=== PATIENT | male | born 1955 | race Caucasian/White ===

== ENCOUNTER 2019-08-14 09:08 | Inpatient (IN) | payer MEDICAID ==
[~2019-08-14] VITALS: Ht 177.8 cm; Wt 76.7 kg
--- NOTE | 2019-08-14 09:12 | NUR ---
BIBA TAKEN TO BED 2
[2019-08-14 09:16] VITALS: BP 118/78
--- NOTE | 2019-08-14 09:24 | NUR ---
QATARI SPEAKING PT PAOA FROM HOME C/O ABD PAIN 2 HOURS RECREATIONAL PROGRAMS DIRECTOR, DENIES NVD. UNKNOWN HISTORY
[2019-08-14 10:22] LABS: BASOPHILS % (AUTO) 1.5 % (0.0-2.0); EOSINOPHILS % (AUTO) 1.3 % (0.0-4.0); HEMATOCRIT 28.2 % (36-52); HEMOGLOBIN 9.2 g/dL (12.0-18.0); LYMPHOCYTES # (AUTO) 0.5 K/uL (2.0-11.5); LYMPHOCYTES % (AUTO) 15.9 % (20.5-51.1); MEAN CORPUSCULAR HEMOGLOBIN 28 pg (27-31); MEAN CORPUSCULAR HGB CONC 33 g/dL (33-37); MEAN CORPUSCULAR VOLUME 85.6 fL (80-94); MONOCYTES # (AUTO) 0.2 K/uL (0.8-1.0); MONOCYTES % (AUTO) 8.1 % (1.7-9.3); NEUTROPHILS # (AUTO) 2.1 K/uL (1.8-7.7); NEUTROPHILS % (AUTO) 73.2 % (42.2-75.2); PLATELET COUNT (AUTO) 90 K/uL (140-450); RED BLOOD CELL COUNT(AUTO) 3.29 MIL/uL (4.20-6.10); RED CELL DISTRIBUTION WIDTH 24.1 % (11.6-13.7); WHITE BLOOD COUNT (AUTO) 2.9 K/uL (4.8-10.8)
[2019-08-14 10:27] LABS: PROTHROMBIN TIME 13.3 secs (10.8-13.4)
[2019-08-14 10:31] LABS: ALBUMIN 1.8 g/dL (3.4-5.0); ANION GAP 12.8 (8-16); CARBON DIOXIDE 23.5 mmol/L (21-32); CREATININE 1.8 mg/dL (0.6-1.3); POTASSIUM 4.3 mmol/L (3.5-5.1); TOTAL BILIRUBIN 0.9 mg/dL (0.0-1.0)
--- NOTE | 2019-08-14 11:30 | NUR ---
REINFORCED THE DRESSING ON PATIENT'S R ABDOMEN DUE TO MINIMAL LEAKAGE OF FLUID. DENIES PAIN. NO SOB.
[2019-08-14] MEDS ORDERED: ALBUMIN HUMAN 25% 100 ML IV ONE ×2 (12:15)
[2019-08-14] MEDS ORDERED: HYDROcodone/APAP 5/325 MG 1 TAB TAB PO ONE (12:20)
[2019-08-14] MEDS ORDERED: ONDANSETRON 4 MG/2 ML VIAL IM/IVP PRN (12:30)
[2019-08-14] MEDS ORDERED: MORPHINE SULFATE 2 MG/ML SYR IVP PRN (12:30)
[2019-08-14] MEDS ORDERED: LORazepam 2 MG/ML VIAL IM/IVP PRN (12:30)
[2019-08-14] MEDS ORDERED: DOCUSATE SODIUM 100 MG GELCAP PO PRN (12:30)
--- NOTE | 2019-08-14 12:33 | NUR ---
Patient will be admitted to care of Dr Galvan. Admited to tele room 116. Belongings list completed. Report to ROSMERY Weller. Endorsed 100ml of 25% albumin to be given IV.
[2019-08-14 12:52] LABS: APPEARANCE,URINE CLEAR (CLEAR); BILIRUBIN,URINE NEGATIVE (NEGATIVE); BLOOD, URINE NEGATIVE (NEGATIVE); COLOR,URINE YELLOW (YELLOW); LEUKOCYTE ESTERASE ,URINE TRACE (NEGATIVE); NITRITE, URINE NEGATIVE (NEGATIVE); PH,URINE 5.5 (5.0-9.0); UGLUCOSE NEGATIVE (NEGATIVE)
[2019-08-14 13:00] LABS: BARBITURATE, URINE NEG. ng/ml (NEG <=200); BENZODIAZEPINE, URINE NEG. ng/mL (NEG <=200); CANNABINOID, URINE NEG. ng/mL (NEG <=50); COCAINE, URINE NEG. ng/mL (NEG <=300); OPIATE, URINE NEG. ng/mL (NEG <=2000); PHENCYCLIDINE SCREEN,URINE NEG. ng/mL (NEG <=25); RBC,URINE NONE SEEN /HPF (0-5); WBC,URINE 0-5 /HPF (0-5)
[2019-08-14 13:30] VITALS: BP 126/73
--- NOTE | 2019-08-14 13:30 | NUR ---
RECEIVED PT FROM ER NURSE, PT BROUGHT IN ON CAMRYN, PT SWEDISH SPEAKERS, PT STABLE, PT TRANSFERRED ON TO BED, PT HAS LAC 20G INFUSING ALBUMIN AT 50 ML/H, PT DX CIRRHOSIS AND ABD PAIN, PT STABLE, PT INTRODUCE TO THE ROOM, UPDATED WHITEBOARD, PT SAFETY MEASURES IN PLACE, DR ENRIQUEZ IN ROOM WITH PT, ALL NEEDS MET NOW, CALL LIGHT WITHIN REACH.
[2019-08-14 13:33] LABS: PROTHROMBIN TIME 13.5 secs (10.8-13.4)
[2019-08-14 13:44] LABS: LIPASE 292 U/L (73-393); PHOSPHORUS 2.9 mg/dL (2.5-4.9); THYROID STIMULATING HORMONE 5.23 uIU/mL (0.34-3.74)
[2019-08-14 13:50] LABS: IRON, SERUM 28 ug/dl (50-175); TOTAL IRON BINDING CAPACITY 267 ug/dl (250-450)
--- NOTE | 2019-08-14 15:00 | NUR ---
PT RESTING IN BED, PT IS STABLE, CALL LIGHT WITHIN REACH.
[2019-08-14 16:00] VITALS: BP 133/75
[2019-08-14] MEDS: NACL 0.9% 1,000 ML IV SCH (17:15)
--- NOTE | 2019-08-14 17:53 | NUR ---
FAX REQUEST TO AUTHORIZATION FOR USE OR DISCLOSURE OF HEALTH INFORMATION TO [facility] AT [phone], 3 PAGES SEND.
--- NOTE | 2019-08-14 19:15 | NUR ---
GAVE REPORT TO NIGHT NURSE FOR CONTINUITY OF CARE, PT IS STABLE.
--- NOTE | 2019-08-14 19:16 | NUR ---
RECEIVED ENDORSEMENT AT BED SIDE FROM AM SHIFT RN. PATIENT IS IN BED. ABLE TO MAKE NEEDS KNOWN. RESPIRATION EVEN AND UNLABORED. DENIES ANY PAIN. IV SITE TO LAC 20 G INFUSING NS 1L AT 10CC/HR. PER ENDORSEMENT PARACENTESIS WAS DONE THIS AM THEY TOOK OUT 5.5 LITERS. PATIENT IS NPO AFTER MIDNIGHT FOR LIVER UTRASOUND TOMORROW. LOW BED IN PLACE. PLAN OF CARE WAS DISCUSSED. WILL CONTINUE TO MONITOR.
[2019-08-14 20:00] VITALS: BP 109/61
--- NOTE | 2019-08-14 21:30 | NUR ---
DUE MEDS GIVEN ORDERED. MED ED PROVIDED. NO A/R NOTED. TOLERATED WELL. BUSINESS SYSTEMS TECHNICIAN CHANGED THE PATIENT.
[2019-08-14] MEDS: PIPERACILLIN/TAZOBACTAM 3.375 GM in DEXTROSE 5% 50 ML IV SCH (22:05)
[2019-08-15] VITALS: BP 100/54
--- NOTE | 2019-08-15 02:10 | NUR ---
INFORMED DR. ELLER ABOUT PARACENTESIS SITE DRESSING THAT HAS A LEAK. SAID TO JUST REINFORCE THE DRESSING. NOTED AND CARRIED OUT. PATIENT DENIES PAIN. NO SOB NOTED.
[2019-08-15] MEDS: HYDROcodone/APAP 5/325 MG 1 TAB TAB PO PRN ×2 (03:59→23:00)
[2019-08-15 04:00] VITALS: BP 113/51
[2019-08-15] MEDS: PIPERACILLIN/TAZOBACTAM 3.375 GM in DEXTROSE 5% 50 ML IV SCH ×3 (05:13→20:11)
--- NOTE | 2019-08-15 05:15 | NUR ---
PATIENT IS RESTING. NO SOB NOTED. ADMINISTERED ZOSYN IVPB ORDERED. NO A/R NOTED. MED ED PROVIDED.
[2019-08-15 06:16] LABS: HEPATITIS A ANTIBODY IGM Negative (Negative); HEPATITIS B CORE AB TOTAL Negative (Negative); HEPATITIS B SURFACE ANTIBODY Non Reactive (.); HEPATITIS B SURFACE ANTIGEN Negative (Negative)
[2019-08-15 07:18] LABS: HEMOGLOBIN 8.5 g/dL (12.0-18.0); MEAN CORPUSCULAR HEMOGLOBIN 28 pg (27-31); WHITE BLOOD COUNT (AUTO) 3.8 K/uL (4.8-10.8)
--- NOTE | 2019-08-15 07:20 | NUR ---
ENDORSED PATIENT TO AM SHIFT RN FOR CONTINUITY OF CARE. PATIENT IS CLEAN, DRY AND COMFORTABLE. NOT IN ANY ACUTE DISTRESS. DENIES PAIN.
[2019-08-15 07:29] LABS: ANION GAP 11.3 (8-16); CARBON DIOXIDE 24.1 mmol/L (21-32); CREATININE 1.6 mg/dL (0.6-1.3); POTASSIUM 4.4 mmol/L (3.5-5.1)
[2019-08-15 07:32] LABS: HEMATOCRIT 26.2 % (36-52); MEAN CORPUSCULAR HGB CONC 32 g/dL (33-37); MEAN CORPUSCULAR VOLUME 85.8 fL (80-94); RED BLOOD CELL COUNT(AUTO) 3.05 MIL/uL (4.20-6.10); RED CELL DISTRIBUTION WIDTH 24.2 % (11.6-13.7)
--- NOTE | 2019-08-15 07:41 | NUR ---
RECEIVED PT FROM SHYAM POSEY RN FOR CONTINUITY OF CARE. PT IS AAOX4, FINNISH SPEAKING. ABLE TO MAKE NEEDS KNOWN. PT BEDBOUND. SKIN INTACT EXCEPT FOR PARACENTESIS DRAINAGE SITE. COVERED WITH BANDAGE. MINIMAL LEAKING NOTED. MD AWARE. PT ON RA. BLE EDEMA. PT USES URINAL FOR VOIDING. DISCUSSED POC WITH PT AND PT VERBALIZED UNDERSTANDING. BOARD UPDATED. SAFETY MEASURES IN PLACE. WILL ROUND FREQUENTLY THROUGHOUT THE SHIFT.
[2019-08-15 07:43] LABS: CHOL/HDL RATIO 3.5 (1-4.5); PHOSPHORUS 2.7 mg/dL (2.5-4.9); PLATELET COUNT (AUTO) 69 K/uL (140-450)
[2019-08-15 07:57] LABS: EOSINOPHILS % (MANUAL) 1 % (0-4); LYMPHOCYTES % (MANUAL) 14 % (20-46); MONOCYTES % (MANUAL) 7 % (5-12)
[2019-08-15 08:00] VITALS: BP 112/55
[2019-08-15] MEDS: LACTOBACILLUS RHAMNOSUS GG 1 EACH CAP PO SCH (09:00)
--- NOTE | 2019-08-15 09:39 | NUR ---
PATIENT HAS BEEN SCREENED AND CATEGORIZED HIGH NUTRITION RISK. PATIENT WILL BE SEEN WITHIN 1-2 DAYS OF ADMISSION. 08/15/2019-08/16/[address]
--- NOTE | 2019-08-15 10:12 | NUR ---
ADMINISTERED MORNING MEDS TO PT. PT TOLERATED WELL. ALL NEEDS MET. WILL CONTINUE TO ROUND ON PT. BED IN LOW POSITION, CALL LIGHT WITHIN REACH.
[2019-08-15 12:00] VITALS: BP 131/62
--- NOTE | 2019-08-15 12:46 | NUR ---
PT WAS GOING TO HAVE CT W/WO CONTRAST. LUNCH WAS BEING HELD BUT TEST CANCELED SO I GAVE PT HIS LUNCH TRAY. PT EATING NOW. ALL NEEDS CURRENTLY MET.
--- NOTE | 2019-08-15 13:09 | NUR ---
08/15/2019 RD INITIAL ASSESSMENT COMPLETED PLEASE REFER TO NUTRITION ASSESSMENT UNDER CARE ACTIVITY FOR ESTIMATED NUTRITIONAL NEEDS. RD RECOMMENDATIONS: 1. CONTINUE NEUTROPENIC DIET TOLERATED. 2. NUTRITION EDUCATION ON CIRRHOSIS PROVIDED TO PT. 3. RD WILL F/U IN 7 DAYS; LOW RISK. EDMUN[address]
--- NOTE | 2019-08-15 14:59 | NUR ---
PT RESTING IN BED WATCHING TV. ALL NEEDS MET. WILL CONTINUE TO ROUND ON PT.
[2019-08-15] MEDS: NACL 0.9% 1,000 ML IV SCH (15:00)
[2019-08-15 16:00] VITALS: BP 116/63
--- NOTE | 2019-08-15 16:37 | NUR ---
PT RESTING IN BED HAVING A JELLO. ALL NEEDS MET. WILL CONTINUE TO ROUND ON PT.
--- NOTE | 2019-08-15 18:42 | NUR ---
PT WATCHING TV IN BED. ALL NEEDS MET. WILL CONTINUE TO ROUND ON PT.
--- NOTE | 2019-08-15 19:35 | NUR ---
ENDORSED PT TO CLAIM INSPECTOR FOR CONTINUITY OF CARE. PT IN STABLE CONDITION AT THIS TIME.
--- NOTE | 2019-08-15 19:38 | NUR ---
RECEIVED REPORT FROM DAY SHIFT NURSE. DISCUSSED PLAN OF CARE. PATIENT IN BED ON SEMI-FOWLERS POSITION. WITH ONGOING IVF INFUSING WELL. RESPIRATIONS ARE EVEN AND UNLABORED. SKIN IS WARM AND DRY. S/P PARACENTESIS PUNCTURE SITE NOTED ON RLQ. DRESSING INTACT WITH NO SIGNS OF INFECTION NOTED. SAFETY MEASURES IN PLACE. BED IN LOW POSITION, SIDE RAILS RAISED, CALL LIGHT WITHIN REACH. DENIES ANY PAIN OR DISCOMFORT AT THIS TIME. WILL CONTINUE TO MONITOR.
--- NOTE | 2019-08-15 23:01 | NUR ---
PATIENT COMPLAINED OF BILATERAL ARM PAIN 6/10. PRN PAIN MEDICATION GIVEN ORDERED. WILL CONTINUE TO MONITOR.
[2019-08-16] VITALS: BP 102/60
--- NOTE | 2019-08-16 00:01 | NUR ---
PATIENT AWAKE IN BED WATCHING TV. DENIES ANY PAIN OR DISCOMFORT AT THIS TIME. NO REQUESTS MADE. KEPT COMFORTABLE. SAFETY MEASURES IN PLACE. BED IN LOW POSITION, SIDE RAILS RAISED, BED ALARM ON, CALL LIGHT WITHIN REACH. WILL CONTINUE TO MONITOR.
--- NOTE | 2019-08-16 02:10 | NUR ---
ROUNDS DONE. PATIENT IN BED SLEEPING. RESPIRATIONS EVEN AND UNLABORED. NO SIGNS AND SYMPTOMS OF DISCOMFORT NOTED. KEPT COMFORTABLE. SAFETY MEASURES IN PLACE. BED IN LOW POSITION, SIDE RAILS RAISED, BED ALARM ON, CALL LIGHT WITHIN REACH. WILL CONTINUE TO MONITOR.
[2019-08-16] MEDS: PIPERACILLIN/TAZOBACTAM 3.375 GM in DEXTROSE 5% 50 ML IV SCH ×3 (04:48→20:10)
--- NOTE | 2019-08-16 04:50 | NUR ---
SCHEDULED MEDICATION GIVEN. PATIENT IN BED WATCHING TV. NO VERBALIZED PAIN OR DISCOMFORT AT THIS TIME. RESPIRATIONS EVEN AND UNLABORED. PATIENT KEPT COMFORTABLE. SAFETY MEASURES IN PLACE. BED IN LOW POSITION, SIDE RAILS RAISED, CALL LIGHT WITHIN REACH. WILL CONTINUE TO MONITOR.
--- NOTE | 2019-08-16 07:10 | NUR ---
ENDORSED PATIENT TO DAY SHIFT NURSE. PLAN OF CARE DISCUSSED. PATIENT IN STABLE CONDITION. NO COMPLAINS MADE. KEPT COMFORTABLE. SAFETY MEASURES IN PLACE.
--- NOTE | 2019-08-16 07:11 | NUR ---
Received report from pm nurse Aidan. Pt resting in bed, no signs of distress, respirations even & nonlabored in room air. Left AC IV 20G intact with ongoing NS @ 10ml/h. Call light within reach.
[2019-08-16 08:00] VITALS: BP 103/56
[2019-08-16] MEDS: LACTOBACILLUS RHAMNOSUS GG 1 EACH CAP PO SCH (08:34)
[2019-08-16 09:13] LABS: BASOPHILS # (AUTO) 0.1 K/uL (0.00-0.22); BASOPHILS % (AUTO) 1.9 % (0.0-2.0); EOSINOPHILS # (AUTO) 0.1 K/uL (0-0.4); EOSINOPHILS % (AUTO) 2.4 % (0.0-4.0); HEMATOCRIT 27.1 % (36-52); HEMOGLOBIN 8.8 g/dL (12.0-18.0); LYMPHOCYTES # (AUTO) 0.6 K/uL (2.0-11.5); MEAN CORPUSCULAR HEMOGLOBIN 28 pg (27-31); MEAN CORPUSCULAR HGB CONC 33 g/dL (33-37); MEAN CORPUSCULAR VOLUME 85.6 fL (80-94); MONOCYTES # (AUTO) 0.3 K/uL (0.8-1.0); MONOCYTES % (AUTO) 7.4 % (1.7-9.3); NEUTROPHILS # (AUTO) 2.5 K/uL (1.8-7.7); NEUTROPHILS % (AUTO) 71.7 % (42.2-75.2); PLATELET COUNT (AUTO) 68 K/uL (140-450); RED BLOOD CELL COUNT(AUTO) 3.16 MIL/uL (4.20-6.10); RED CELL DISTRIBUTION WIDTH 24.1 % (11.6-13.7); WHITE BLOOD COUNT (AUTO) 3.4 K/uL (4.8-10.8)
--- NOTE | 2019-08-16 09:30 | NUR ---
Pt asked to take away breakfast leftovers. Noted pt consumed about 40% of breakfast tray. Pt states she doesn't have much appetite. Will cont to monitor.
[2019-08-16 10:01] LABS: ALBUMIN 1.9 g/dL (3.4-5.0); ANION GAP 12.6 (8-16); CARBON DIOXIDE 24.9 mmol/L (21-32); CREATININE 1.7 mg/dL (0.6-1.3); POTASSIUM 5.5 mmol/L (3.5-5.1); TOTAL BILIRUBIN 0.9 mg/dL (0.0-1.0)
[2019-08-16 10:28] LABS: LYMPHOCYTES % (AUTO) 16.6 % (20.5-51.1)
--- NOTE | 2019-08-16 11:36 | NUR ---
DISCHARGE PLANNING: THIS IS A 63 Y/O MALE PATIENT FROM HOME, WHO CAME IN DUE TO ABDOMINAL PAIN AND DISTENTION X1 WEEK. PAST MEDICAL HISTORY INCLUDE ALCOHOLIC LIVER CIRRHOSIS. INITIAL DIAGNOSIS OF ABDOMINAL PAIN, CIRRHOSIS. CURRENT LABS INCLUDE WBC 3.4, H/H 8.8/27.1, NA/K 139/5.5, BUN/CREA 20/1.7, ALB 1.9. UDS NEGATIVE. POSITIVE FOR HEP A. GI CONSULT IN PLACE. ON ZOSYN. LIVER U/S SHOWED CIRRHOTIC APPEARANCE OF THE LIVER. CXR SHOWED DECREASED LUNG VOLUME WITH MILD LEFT BASILAR ATELECTASIS. RIGHT SHOULDER X RAY SHOWED DEGENERATIVE OSTEOARTHRITIS. DC PLAN BACK TO HOME ONCE STABLE. Addendum: 08/17/19 at 1541 by Yessi Harp DC PLANNING: HGB TRENDING DOWN FROM9.2-7.9 REPEAT CBC IN AM , CONTINUE ZOSYN SPUTUM CULTURE PENDING . DC PLAN IN AM. CM TO FOLLOW Addendum: 08/18/19 at 1340 by Yessi Harp DC PLANNING: SEEN BY MINH OCONNOR AND CLEAR PT TO GO HOME AND FOLLOW UP OUT PATIENT. H/H 8.3/25.1 STABLE FOR DISCHARGE.
[2019-08-16] MEDS: NACL 0.9% 1,000 ML IV SCH (14:26)
--- NOTE | 2019-08-16 15:01 | NUR ---
Pt asleep in bed, respirations even & nonlabored in room air. Call light within reach.
[2019-08-16 16:00] VITALS: BP 116/71
[2019-08-16] MEDS ORDERED: LACTULOSE 20 GM/30 ML UDC PO ONE (17:35)
--- NOTE | 2019-08-16 19:30 | NUR ---
RECEIVED CHANGE OF SHIFT REPORT FROM RANDOLPH BOTELLO. PT IS AWAKE AND ALERT. GRENADIAN SPEAKING. A&OX4. GCS=15. PT IS BEDREST. NO APPARENT SIGNS OF DISTRESS. LUNG SOUNDS CLEAR. EQUAL RISE AND FALL OF THE CHEST. S1S2 HEARD. +2 RADIAL PULSES FELT. CAP REFILL <3 SECONDS. BOWEL SOUNDS HEARD. ASCITES PRESENT. PT HAS RIGHT DRESSING S/P PARACENTESIS. DRESSING IS CLEAN DRY AND INTACT. PT HAS NON-PITTING EDEMA OF THE LOWER EXTREMITY. PIV OF THE LEFT AC 20G THAT IS ASYMPTOMATIC, PATENT AND INTACT RUNNING NS AT 10ML/HR. BED IS LOCKED IN LOW POSITION W/ 2 SIDE RAILS UP. CALL LIGHT WITHIN REACH. WILL CONTINUE TO MONITOR.
[2019-08-17] VITALS: BP 95/50
--- NOTE | 2019-08-17 00:08 | NUR ---
CHECKED IN ON PT. PT HAS EYES CLOSED APPEARING TO BE RESTING. EQUAL RISE AND FALL OF CHEST NOTED. NO APPARENT DISTRESS. HOB 30 DEGREES. BED IS LOCKED IN LOW POSITION. SIDE RAILS UP. CALL LIGHT WITHIN REACH. WILL CONTINUE TO MONITOR.
--- NOTE | 2019-08-17 04:00 | NUR ---
SPONGE BATH GIVEN LINEN CHANGED NOT DISTRESS NOTED CONTINUE MONITORING
[2019-08-17] MEDS: PIPERACILLIN/TAZOBACTAM 3.375 GM in DEXTROSE 5% 50 ML IV SCH ×3 (04:20→20:26)
--- NOTE | 2019-08-17 06:40 | NUR ---
PT WILLBE ENDORSED TO DAY SHIFT NURSE FOR CONTINUE OF CARE
[2019-08-17 06:51] LABS: BASOPHILS # (AUTO) 0.1 K/uL (0.00-0.22); BASOPHILS % (AUTO) 3.3 % (0.0-2.0); EOSINOPHILS # (AUTO) 0.1 K/uL (0-0.4); EOSINOPHILS % (AUTO) 2.8 % (0.0-4.0); HEMATOCRIT 24.2 % (36-52); HEMOGLOBIN 7.9 g/dL (12.0-18.0); LYMPHOCYTES # (AUTO) 0.5 K/uL (2.0-11.5); LYMPHOCYTES % (AUTO) 14.7 % (20.5-51.1); MEAN CORPUSCULAR HEMOGLOBIN 28 pg (27-31); MEAN CORPUSCULAR HGB CONC 33 g/dL (33-37); MEAN CORPUSCULAR VOLUME 85.6 fL (80-94); MONOCYTES # (AUTO) 0.4 K/uL (0.8-1.0); MONOCYTES % (AUTO) 10.2 % (1.7-9.3); NEUTROPHILS # (AUTO) 2.4 K/uL (1.8-7.7); PLATELET COUNT (AUTO) 55 K/uL (140-450); RED BLOOD CELL COUNT(AUTO) 2.83 MIL/uL (4.20-6.10); RED CELL DISTRIBUTION WIDTH 23.9 % (11.6-13.7); WHITE BLOOD COUNT (AUTO) 3.5 K/uL (4.8-10.8)
--- NOTE | 2019-08-17 07:00 | NUR ---
RECEIVED REPORT FROM SENIOR SOFTWARE QA ENGINEER NURSE PHOEBE-ROSMERY. PT RESTING IN BED, AOX4, CZECH SPEAKING. DISCUSSED PLAN OF CARE AND PT VERBALIZED UNDERSTANDING. IV SITE LEFT AC #20G TKO. RIGHT ABD PUNCTURE SITE. NON AMBULATORY, 30 DEGREES HEAD ELEVATION. NO S/S OF RESPIRATORY DISTRESS OR DISCOMFORT NOTED AT THIS TIME. WILL CONTINUE TO MONITOR.
[2019-08-17 07:51] LABS: ALBUMIN 1.5 g/dL (3.4-5.0); ANION GAP 8.9 (8-16); CARBON DIOXIDE 24.3 mmol/L (21-32); CREATININE 1.4 mg/dL (0.6-1.3); POTASSIUM 4.2 mmol/L (3.5-5.1)
[2019-08-17 08:00] VITALS: BP 129/61
[2019-08-17] MEDS: LACTULOSE 20 GM/30 ML UDC PO SCH (09:14)
[2019-08-17] MEDS: LACTOBACILLUS RHAMNOSUS GG 1 EACH CAP PO SCH (09:14)
--- NOTE | 2019-08-17 09:14 | NUR ---
SCHEDULED MEDICATION GIVEN AND TOLERATED WELL. NO S/S OF RESPIRATORY DISTRESS OR DISCOMFORT NOTED AT THIS TIME. WILL CONTINUE TO MONITOR.
--- NOTE | 2019-08-17 10:48 | NUR ---
SPOKE WITH PT AND ASKED IF HE HAS ANY ALLERGIES THAT HE IS AWARE OF. PT STATED HE HAS NEVER EXPERIENCED AN ALLERGY/ALLERGIC REACTION TO MEDICATION OR FOOD. WILL UPDATE IN PROFILE.
[2019-08-17] MEDS ORDERED: SODIUM FERRIC GLUCONATE 125 MG in NACL 0.9% 100 ML IV SCH (11:00)
--- NOTE | 2019-08-17 14:00 | NUR ---
OCCULT BLOOD COLLECTED.
[2019-08-17] MEDS: NACL 0.9% 1,000 ML IV SCH (15:00)
--- NOTE | 2019-08-17 15:07 | NUR ---
SCHEDULED MEDICATION ZOSYN GIVEN AND TOLERATED WELL. NO S/S OF RESPIRATORY DISTRESS OR DISCOMFORT NOTED AT THIS TIME. WILL CONTINUE TO MONITOR.
[2019-08-17 16:00] VITALS: BP 123/63
[2019-08-17] MEDS: FERROUS SULFATE 325 MG TABEC PO SCH (17:20)
--- NOTE | 2019-08-17 17:20 | NUR ---
SCHEDULED MEDICATION FERROUS SULFATE GIVEN AND TOLERATED WELL. NO S/S OF RESPIRATORY DISTRESS OR DISCOMFORT NOTED AT THIS TIME. WILL CONTINUE TO MONITOR.
--- NOTE | 2019-08-17 19:20 | NUR ---
RECEIVED PATIENT IN STABLE CONDITION FROM AM SHIFT NURSE FOR CONTINUITY OF CARE. RESPIRATIONS EVEN, UNLABORED. IV SITE NOTED TO LEFT AC 20G, INFUSING FLUIDS WELL. NO C/O PAIN. NO S/SX ACUTE DISTRESS. SAFETY PRECAUTIONS IN PLACE. CALL LIGHT WITHIN REACH. WILL CONTINUE TO MONITOR.
--- NOTE | 2019-08-17 21:30 | NUR ---
PATIENT IS AWAKE AND WATCHING TV IN BED. NO C/O PAIN. NO S/SX ACUTE DISTRESS. CALL LIGHT WITHIN REACH. WILL CONTINUE TO MONITOR.
--- NOTE | 2019-08-17 23:10 | NUR ---
PATIENT CONTINUES IN STABLE CONDITION. ASLEEP. NO C/O PAIN. NO S/SX ACUTE DISTRESS. CALL LIGHT WITHIN REACH. WILL CONTINUE TO MONITOR.
[2019-08-18] VITALS: BP 112/60
--- NOTE | 2019-08-18 01:45 | NUR ---
MADE ROUNDS. PATIENT IS ASLEEP AND IN STABLE CONDITION. NO C/O PAIN. NO S/SX ACUTE DISTRESS. CALL LIGHT WITHIN REACH. WILL CONTINUE TO MONITOR.
--- NOTE | 2019-08-18 03:06 | NUR ---
PATIENT CONTINUES IN STABLE CONDITION. NO C/O PAIN. NO S/SX ACUTE DISTRESS. CALL LIGHT WITHIN REACH. WILL CONTINUE TO MONITOR.
[2019-08-18] MEDS: PIPERACILLIN/TAZOBACTAM 3.375 GM in DEXTROSE 5% 50 ML IV SCH ×2 (04:08→13:51)
[2019-08-18] MEDS: HYDROcodone/APAP 5/325 MG 1 TAB TAB PO PRN (05:27)
--- NOTE | 2019-08-18 05:27 | NUR ---
PATIENT C/O ACHING BILATERAL FOOT PAIN 10/27. MEDICATED ORDERED. REPOSITIONED BILATERAL LOWER EXTREMITIES FOR COMFORT. CALL LIGHT WITHIN REACH. WILL CONTINUE TO MONITOR.
--- NOTE | 2019-08-18 06:27 | NUR ---
REASSESSED PAIN LEVEL AT 0/10. PATIENT ASLEEP AND IN STABLE CONDITION. CALL LIGHT WITHIN REACH. WILL CONTINUE TO MONITOR.
--- NOTE | 2019-08-18 07:15 | NUR ---
RECEIVED REPORT FROM MACHINE STAMPER NURSE. PT IS CURRENTLY SLEEPING WITH NO SIGNS OF DISTRESS NOTED OR COMPLAINTS OF PAIN. WILL ADMINISTER PAIN MEDICATION PER ORDER. IV IS ASYMPTOMATIC AND PATENT. RESPIRATIONS ARE EVEN UNLABORED WITH VISIBLE CHEST RISE AND FALL ON RA. SKIN IS INTACT. SAFETY MEASURES IN PLACE, CALL LIGHT WITHIN REACH AND WILL CONTINUE TO MONITOR.
--- NOTE | 2019-08-18 07:26 | NUR ---
ENDORSED PATIENT IN STABLE CONDITION TO AM SHIFT NURSE FOR CONTINUITY OF CARE.
[2019-08-18 07:37] LABS: HEMATOCRIT 25.1 % (36-52); HEMOGLOBIN 8.3 g/dL (12.0-18.0); MEAN CORPUSCULAR HEMOGLOBIN 28 pg (27-31); MEAN CORPUSCULAR HGB CONC 33 g/dL (33-37); MEAN CORPUSCULAR VOLUME 85.1 fL (80-94); PLATELET COUNT (AUTO) 66 K/uL (140-450); RED BLOOD CELL COUNT(AUTO) 2.95 MIL/uL (4.20-6.10); RED CELL DISTRIBUTION WIDTH 23.3 % (11.6-13.7); WHITE BLOOD COUNT (AUTO) 3.3 K/uL (4.8-10.8)
[2019-08-18 07:43] LABS: ALBUMIN 1.5 g/dL (3.4-5.0); CARBON DIOXIDE 27.2 mmol/L (21-32); CREATININE 1.5 mg/dL (0.6-1.3); MAGNESIUM 1.8 mg/dL (1.8-2.4); PHOSPHORUS 1.9 mg/dL (2.5-4.9); POTASSIUM 4.2 mmol/L (3.5-5.1); TOTAL BILIRUBIN 0.7 mg/dL (0.0-1.0)
[2019-08-18 08:00] VITALS: BP 121/64
[2019-08-18 08:12] LABS: EOSINOPHILS % (MANUAL) 3 % (0-4); LYMPHOCYTES % (MANUAL) 19 % (20-46); MONOCYTES % (MANUAL) 4 % (5-12)
[2019-08-18] MEDS: LACTULOSE 20 GM/30 ML UDC PO SCH (09:39)
[2019-08-18] MEDS: LACTOBACILLUS RHAMNOSUS GG 1 EACH CAP PO SCH (09:39)
[2019-08-18] MEDS: FERROUS SULFATE 325 MG TABEC PO SCH ×2 (09:40→17:00)
--- NOTE | 2019-08-18 09:45 | NUR ---
MEDICATIONS ADMINISTERED PER ORDER AND TOLERATED WELL. NO SIGNS OF DISTRESS NOTED. SAFETY MEASURES IN PLACE AND WILL CONTINUE TO MONITOR.
[2019-08-18] MEDS ORDERED: SODIUM PHOSPHATE 15 MMOLE in NACL 0.9% 250 ML IV SCH (10:30)
[2019-08-18] MEDS ORDERED: FER325 PO ×2 (13:47→14:22)
[2019-08-18] MEDS ORDERED: AMOX-999 PO ×2 (13:47→14:22)
[2019-08-18] MEDS ORDERED: LACT10CA1 PO ×2 (13:47→14:22)
--- NOTE | 2019-08-18 14:14 | NUR ---
Foreign Clerk Note: Basic Screen: Yes High Risk DC Screen [place]: DERRELL Santiago Relationship: FAMILY Pre-Admission Living Arrangements: Lives with Other Prior ADL Independent Current Home Health Name/Tel: N/A Current DME/02 Name/Tel: [facility] Current Hospice Name/Tel: N/A Current Dialysis Name/Tel: N/A Healthcare Decision Maker: Patient Advance Directive No Physician Orders for Life Sustaining Treatment Form No Patient/Family Have Educational Needs No Information Taught: Advance Directive Community Resources Person Taught: Patient Teaching Tools: Verbal Factors Affecting Learning: None Participation Level: Refused Evaluation: Verbalizes Understanding Needs Additional Education: No Discipline: Case Mgt/Social Svcs Tentative Discharge Plan/Destination: No Needs Identified Will require assistance post discharge: No Referred to Final Tester: No Tentative Discharge Plan Summary: Patient is a 63-year-old male admitted for abdominal pain cirrhosis. Patient has PMHX of cirrhosis. Patient was admitted from home where he lives with his cousin. SW met with patient at bedside to verify demographics. SW met patient with nurse Zafar to translate to Estonian. Per patient he is independent with ADLs. Patient reports no history of mental health and no current substance abuse. SW inquired when patient drank last, and patient stated he has not drank in one year. SW discussed with patient his discharge plan and patient stated that he lives with his cousin. Tentative discharge plan is for patient to return home. No further needs identified. Signature: WANG Muñoz Date: Aug 18, 2019 Time: 14:13
--- NOTE | 2019-08-18 14:24 | NUR ---
CALLED DERRELL SAHNI, NO ANSWER, LEFT A MESSAGE. ALSO CALLED PTS CONTACT NUMBER FROM SUMMARY AND NUMBER IS INCORRECT. CORRESPONDS TO ANOTHER PT. UNABLE TO CONTACT
[2019-08-18] MEDS: NACL 0.9% 1,000 ML IV SCH (15:00)
[2019-08-18 16:00] VITALS: BP 124/70
--- NOTE | 2019-08-18 19:29 | NUR ---
RECEIVED PATIENT IN STABLE CONDITION FROM AM SHIFT NURSE FOR CONTINUITY OF CARE. RESPIRATIONS EVEN, UNLABORED. NO C/O PAIN. NO S/SX ACUTE DISTRESS. SAFETY PRECAUTIONS IN PLACE. PATIENT IS DUE TO BE DISCHARGED. AWAITING CAB FOR ANIMAL TRAINER SUPERVISOR. CALL LIGHT WITHIN REACH. WILL CONTINUE TO MONITOR.
--- NOTE | 2019-08-18 19:29 | NUR ---
ENDORSED TO EYEGLASS FRAMES INSPECTOR NURSE. PT IS AWAKE, ALERT IN BED AND DOES NOT COMPLAIN OF ANY PAIN. IV HAS BEEN DISCONTINUED WITH LUMEN INTACT AND MINIMAL BLOOD LOSS. SAFETY MEASURES IN PLACE, CALL LIGHT IN PLACE, AND WILL CONTINUE TO MONITOR.
--- NOTE | 2019-08-18 19:54 | NUR ---
PATIENT IS DISCHARGED WITH DISCHARGE PACKET. NO S/SX ACUTE DISTRESS. PATIENT IS IN STABLE CONDITION. ALL BANDS REMOVED. ASSISTED TO FRONT LOBBY BY STAFF.
== END 2019-08-18 19:55 | disposition home or self-care (01) | DRG 280 ==
LOC: MED 09:08 → MTU 12:32
PROVIDERS: ADMIT General Practice; ATTEND General Practice
PROC: 0W9G3ZZ Drainage of Peritoneal Cavity, Percutaneous Approach (ICD-10-PCS; principal; 2019-08-14)
DX: K70.31 Alcoholic cirrhosis of liver with ascites (principal); J69.0 Pneumonitis due to inhalation of food and vomit; E43 Unspecified severe protein-calorie malnutrition; N17.0 Acute kidney failure with tubular necrosis; G93.41 Metabolic encephalopathy; D61.818 Other pancytopenia; N39.0 Urinary tract infection, site not specified; K76.9 Liver disease, unspecified; M19.011 Primary osteoarthritis, right shoulder; E02 Subclinical iodine-deficiency hypothyroidism; Z68.24 Body mass index [BMI] 24.0-24.9, adult; Z63.8 Other specified problems related to primary support group; Z91.19 Patient's noncompliance with other medical treatment and regimen; Z88.8 Allergy status to other drugs, medicaments and biological substances
CPT/HCPCS: 36415; 71045; 73030; 76705; 80048; 80053; 80305; 81001; 82140; 82150; 82272; 82607; 82728; 82746; 82945; 83036; 83540; 83690; 83735; 83880; 84100; 84157; 84439; 84443; 84484; 85025; 85045; 85610; 85730; 86704; 86706; 86708; 86709; 86803; 87070; 87081; 87205; 87340; 93005; 93308; 93970; 96365; 99285; G0482; J2543; J2916; J7030; J7060; P9046; Q0092